=== PATIENT | male | born 1985 | race Asian ===

== ENCOUNTER 2020-06-27 08:07 | Day surgery (SDC) | payer OTHER, SELFPAY ==
[~2020-06-27] VITALS: Ht 185.4 cm; Wt 81.6 kg
[2020-06-27] MEDS ORDERED: MIDAZOLAM 5 MG/5 ML VIAL ONE (10:38)
[2020-06-27] MEDS ORDERED: fentaNYL citrate 0.05 MG/ML VIAL ONE (10:38)
[2020-06-27] MEDS ORDERED: LIDOCAINE 2% 100 MG/5 ML UJET TP ONE (10:54)
[2020-06-27] MEDS ORDERED: MIDAZOLAM 2 MG/2 ML VIAL IVP ONE (12:25)
[2020-06-27] MEDS ORDERED: fentaNYL citrate 0.05 MG/ML VIAL IVP ONE (12:25)
== END 2020-06-27 11:45 | disposition home or self-care (01) ==
LOC: MDS 08:07 → MMU 08:08 → MDS 11:45
PROVIDERS: ATTEND Internal Medicine Gastroenterology
DX: K52.9 Noninfective gastroenteritis and colitis, unspecified (principal); F17.210 Nicotine dependence, cigarettes, uncomplicated
CPT/HCPCS: 45380; 88305; J2250; J3010; U0003